=== PATIENT | female | born 1985 | race Caucasian/White ===

== ENCOUNTER 2016-09-01 11:49 | Emergency (ER) | payer MEDICAID ==
[~2016-09-01] VITALS: Ht 162.6 cm; Wt 65.0 kg
[~2016-09-01 11:49] MED LIST: CIPR500T4 PO; PERC5TAB12 PO; TAMS0.4C67 PO
[2016-09-01 11:51] VITALS: BP 128/61; PULSE 89; RESP 12; TEMP 98; O2SAT 100
--- NOTE | 2016-09-01 12:02 | PD ---
HPI Chief Complaint: Related Problem Time Seen by Provider: 12:02 Travel History International Travel<30 days: No Contact w/Intl Traveler<30days: No Traveled to known affect area: No History of Present Illness HPI [employer] interpretation services are used 30 year-old female with no significant medical history, presents to emergency department for evaluation of nausea, vomiting, fever, chills. Patient believes that she is 6 or 7 weeks . Her last menstrual cycle was in June. She states yesterday she developed fever and she has had lower abdominal pain as well. Vaginal discharge without bleeding. She has had no episodes of diarrhea. She has had decreased urine output. She has no other symptoms to report. PFS Past Medical History Medical History: Denies Significant Hx ?: Not : 3 Para: 3 Social History Alcohol Use: No Tobacco Use: No Substance Use: No Allergies-Medications (Allergen,Severity, Reaction): Coded Allergies: No Known Allergies (Unverified , 09/01/16) Reported Meds & Prescriptions Reported Meds & Active Scripts Active Zofran Odt (Ondansetron Odt) 4 Mg Tab 4 Mg SL Q6HR PRN Macrobid (Nitrofurantoin Monoh/Nitrofur Macro) 100 Mg Cap 100 Mg PO BID 10 Days Review of Systems Except as stated in HPI: all other systems reviewed are Neg Physical Exam Narrative GENERAL: Well-nourished female patient, lying in bed in no acute distress SKIN: Warm and dry. HEAD: Atraumatic. Normocephalic. EYES: Pupils equal and round. No scleral icterus. No injection or drainage. ENT: No nasal bleeding or discharge. Mucous membranes pink and moist. NECK: Trachea midline. No JVD. CARDIOVASCULAR: Regular rate and rhythm. No murmur appreciated. RESPIRATORY: No accessory muscle use. Clear to auscultation. Breath sounds equal bilaterally. GASTROINTESTINAL: Abdomen soft, nondistended. Suprapubic and right lower quadrant tenderness to palpation. No rebound tenderness.. Hepatic and splenic margins not palpable. MUSCULOSKELETAL: No obvious deformities. No clubbing. No cyanosis. No edema. NEUROLOGICAL: Awake and alert. No obvious cranial nerve deficits. Motor grossly within normal limits. Normal speech. PSYCHIATRIC: Appropriate mood and affect; insight and judgment normal. Data Data Last Documented VS Vital Signs Date Time Temp Pulse Resp B/P Pulse Ox O2 Delivery O2 Flow Rate FiO2 09/01/16 15:32 82 16 120/62 100 Room Air 09/01/16 11:51 98.0 Orders Basic Metabolic Panel (Bmp) (09/01/16 12:25) Beta Hcg (Quant/Titer) (09/01/16 12:25) Complete Blood Count With Diff (09/01/16 12:25) Lipase (09/01/16 12:25) Urinalysis - C+S If Indicated (09/01/16 12:25) Ed Urine Pregnancytest Poc (09/01/16 12:25) Influenzae A/B Antigen (09/01/16 12:25) Us Pelvis (Ques Pr/Ect)W Trans (09/01/16 ) Labs Laboratory Tests Test 09/01/16 12:56 White Blood Count 10.5 TH/MM3 Red Blood Count 4.35 MIL/MM3 Hemoglobin 13.3 GM/DL Hematocrit 39.8 % Mean Corpuscular Volume 91.4 FL Mean Corpuscular Hemoglobin 30.6 PG Mean Corpuscular Hemoglobin 33.5 % Concent Red Cell Distribution Width 13.0 % Platelet Count 259 TH/MM3 Mean Platelet Volume 8.5 FL Neutrophils (%) (Auto) 69.7 % Lymphocytes (%) (Auto) 15.3 % Monocytes (%) (Auto) 9.3 % Eosinophils (%) (Auto) 5.3 % Basophils (%) (Auto) 0.4 % Neutrophils # (Auto) 7.3 TH/MM3 Lymphocytes # (Auto) 1.6 TH/MM3 Monocytes # (Auto) 1.0 TH/MM3 Eosinophils # (Auto) 0.6 TH/MM3 Basophils # (Auto) 0.0 TH/MM3 CBC Comment DIFF FINAL Differential Comment Urine Color YELLOW Urine Turbidity HAZY Urine pH 8.0 Urine Specific [place] 1.017 Urine Protein NEG mg/dL Urine Glucose (UA) NEG mg/dL Urine Ketones NEG mg/dL Urine Occult Blood NEG Urine Nitrite NEG Urine Bilirubin NEG Urine Urobilinogen LESS THAN 2.0 MG/DL Urine Leukocyte Esterase SMALL Urine RBC 1 /hpf Urine WBC 3 /hpf Urine Squamous Epithelial 2 /hpf Cells Urine Transitional Epithelial <1 /hpf Cells Urine Bacteria OCC /hpf Urine Mucus FEW /lpf Microscopic Urinalysis Comment CULT NOT INDICATED Sodium Level 138 MEQ/L Potassium Level 3.8 MEQ/L Chloride Level 107 MEQ/L Carbon Dioxide Level 25.7 MEQ/L Anion Gap 5 MEQ/L Blood Urea Nitrogen 6 MG/DL Creatinine 0.71 MG/DL Estimat Glomerular Filtration 97 ML/MIN Rate Random Glucose 90 MG/DL Calcium Level 8.9 MG/DL Lipase 100 U/L Human Chorionic Gonadotropin, [address] MIU/ML Quant MDM Medical Decision Making Medical Screen Exam Complete: Yes Emergency Medical Condition: Yes Medical Record Reviewed: Yes Differential Diagnosis Influenza versus UTI versus STD versus versus ectopic versus appendicitis versus gastritis Narrative Course 30-year-old female presents to emergency department for evaluation. Patient appears without distress. She does have suprapubic and right lower quadrant tenderness to palpation. Vital signs overall stable. She appears without distress. Workup was initiated in triage. Once a medical bed becomes available , patient will be transferred and care assumed by the provider. Scripts Ondansetron Odt (Zofran Odt)4 Mg Tab4 Mg SL Q6HR PRN (Nausea/Vomiting) #12 TAB Ref 0 Prov:Jose Vyas MD 09/01/16 Nitrofurantoin Monohydrate Macrocrystals (Macrobid)100 Mg [id number] Mg PO BID 10 Days Ref 0 Prov:Jose Vyas MD 09/01/16 Condition: Stable Jing Olvera Sep 01, 2016 12:02
[2016-09-01 13:18] LABS: AUTOMATED NEUTROPHIL # 7.3 TH/MM3 (1.8-7.7); BASOPHIL % 0.4 % (0.0-2.0); EOSINOPHIL # 0.6 TH/MM3 (0-0.4); EOSINOPHIL % 5.3 % (0.0-4.0); HEMATOCRIT 39.8 % (35.0-46.0); HEMO FLAGS DIFF FINAL; LYMPH % 15.3 % (9.0-44.0); LYMPHOCYTE # 1.6 TH/MM3 (1.0-4.8); MEAN CELL VOLUME 91.4 FL (80.0-100.0); MEAN CORPUSCULAR HEMOGLOBIN 30.6 PG (27.0-34.0); MEAN CORPUSCULAR HGB CONC 33.5 % (32.0-36.0); MONO % 9.3 % (0.0-8.0); NEUT % 69.7 % (16.0-70.0); PLATELET COUNT 259 TH/MM3 (150-450); RED BLOOD COUNT 4.35 MIL/MM3 (4.00-5.30); WHITE BLOOD COUNT 10.5 TH/MM3 (4.0-11.0)
[2016-09-01 13:25] LABS: BACTERIA, URINE OCC /hpf; BLOOD, URINE NEG (NEG); GLUCOSE,URINE NEG (NEG); KETONE, URINE NEG (NEG); MUCUS URINE FEW /lpf (OCC); NITRITE,URINE NEG (NEG); SQUAMOUS EPITHELIAL CELL URINE 2 /hpf (0-5); TRANSITIONAL EPI CELLS, URINE <1 /hpf; URINE COLOR YELLOW (YELLW/STRAW)
[2016-09-01 13:27] LABS: COMMENT (UR) CULT NOT INDICATED; CULTURE IF INDICATED CULT NOT INDICATED
[2016-09-01 13:31] LABS: BICARBONATE 25.7 MEQ/L (21.0-32.0); POTASSIUM 3.8 MEQ/L (3.5-5.1)
--- NOTE | 2016-09-01 14:13 | PD ---
Physical Exam Narrative Patient was initially seen in triage. Please see previous provider documentation for H&P. [employer] service was used for H&P as patient 's primary Nigerian-speaking.. Briefly patient comes in complaining of lower abdominal cramping pain, subjective fevers, nausea, and vomiting in . Patient is uncertain how high her fever was, but feels that she had one. Patient believes she is approximately 6-7 weeks has not been evaluated by an OB or primary care doctor for this yet. Patient denies doing anything for this. Patient reports small amount of vaginal discharge yesterday that was nonbloody. Denies any diarrhea, chest pain, shortness of breath, back pain, or known sick contacts. GENERAL: Well-developed, well nourished, in no acute distress, and non-ill appearing. SKIN: Warm and dry. HEAD: Atraumatic. Normocephalic. EYES: Pupils equal and round. EOMI. No scleral icterus. No injection or drainage. ENT: No nasal bleeding or discharge. Mucous membranes pink and moist. NECK: Trachea midline. Supple. No nuclear rigidity. CARDIOVASCULAR: Regular rate and rhythm. No murmur appreciated. RESPIRATORY: No accessory muscle use. No respiratory distress. Clear to auscultation. Breath sounds equal bilaterally. GASTROINTESTINAL: Abdomen soft, non-tender, nondistended. Hepatic and splenic margins not palpable. Normal bowel sounds 4. No pulsatile mass. MUSCULOSKELETAL: No obvious deformities. No clubbing. No cyanosis. No edema. Full range of motion. NEUROLOGICAL: Awake and alert. No obvious cranial nerve deficits. Motor grossly within normal limits. Normal speech. PSYCHIATRIC: Appropriate mood and affect; insight and judgment normal. Data Data Last Documented VS Vital Signs Date Time Temp Pulse Resp B/P Pulse Ox O2 Delivery O2 Flow Rate FiO2 09/01/16 15:32 82 16 120/62 100 Room Air 09/01/16 11:51 98.0 Orders Basic Metabolic Panel (Bmp) (09/01/16 12:25) Beta Hcg (Quant/Titer) (09/01/16 12:25) Complete Blood Count With Diff (09/01/16 12:25) Lipase (09/01/16 12:25) Prothrombin Time / Inr (Pt) (09/01/16 12:25) Act Partial Throm Time (Ptt) (09/01/16 12:25) Urinalysis - C+S If Indicated (09/01/16 12:25) Ed Urine Pregnancytest Poc (09/01/16 12:25) Influenzae A/B Antigen (09/01/16 12:25) Us Pelvis (Ques Pr/Ect)W Trans (09/01/16 ) Labs Laboratory Tests Test 09/01/16 12:56 White Blood Count 10.5 TH/MM3 Red Blood Count 4.35 MIL/MM3 Hemoglobin 13.3 GM/DL Hematocrit 39.8 % Mean Corpuscular Volume 91.4 FL Mean Corpuscular Hemoglobin 30.6 PG Mean Corpuscular Hemoglobin 33.5 % Concent Red Cell Distribution Width 13.0 % Platelet Count 259 TH/MM3 Mean Platelet Volume 8.5 FL Neutrophils (%) (Auto) 69.7 % Lymphocytes (%) (Auto) 15.3 % Monocytes (%) (Auto) 9.3 % Eosinophils (%) (Auto) 5.3 % Basophils (%) (Auto) 0.4 % Neutrophils # (Auto) 7.3 TH/MM3 Lymphocytes # (Auto) 1.6 TH/MM3 Monocytes # (Auto) 1.0 TH/MM3 Eosinophils # (Auto) 0.6 TH/MM3 Basophils # (Auto) 0.0 TH/MM3 CBC Comment DIFF FINAL Differential Comment Urine Color YELLOW Urine Turbidity HAZY Urine pH 8.0 Urine Specific [place] 1.017 Urine Protein NEG mg/dL Urine Glucose (UA) NEG mg/dL Urine Ketones NEG mg/dL Urine Occult Blood NEG Urine Nitrite NEG Urine Bilirubin NEG Urine Urobilinogen LESS THAN 2.0 MG/DL Urine Leukocyte Esterase SMALL Urine RBC 1 /hpf Urine WBC 3 /hpf Urine Squamous Epithelial 2 /hpf Cells Urine Transitional Epithelial <1 /hpf Cells Urine Bacteria OCC /hpf Urine Mucus FEW /lpf Microscopic Urinalysis Comment CULT NOT INDICATED Sodium Level 138 MEQ/L Potassium Level 3.8 MEQ/L Chloride Level 107 MEQ/L Carbon Dioxide Level 25.7 MEQ/L Anion Gap 5 MEQ/L Blood Urea Nitrogen 6 MG/DL Creatinine 0.71 MG/DL Estimat Glomerular Filtration 97 ML/MIN Rate Random Glucose 90 MG/DL Calcium Level 8.9 MG/DL Lipase 100 U/L Human Chorionic Gonadotropin, [address] MIU/ML Quant MDM Supervised Visit with CHELSEY: No Narrative Course Patient presented with lower abdominal pain and the test was positive. Ultrasound was performed and there is evidence of a developing uterine . There is no evidence to suggest ectopic , nor cervicitis, PID or torsion at this time. Patient appears stable and no clinical evidence of anemia or blood loss/rupture. There was no evidence to support colitis, diverticulitis, obstruction, abdominal or femoral herniation, volvulus , early appendicitis, or hernial incarceration or strangulation at this time. Patient in no obvious distress upon re-evaluation. All pertinent laboratory/ Radiology result(s) discussed with patient. Patient was asked if they wanted to speak to my attending, which the patient did not wish to do at this time. Discussed patient with Dr. Vyas, who is in agreement with plan of care and disposition. Any questions/concerns in reference to patient diagnosis/ condition discussed and clarified prior to patient's discharge. Reinforced sheer importance of close follow up with patient's primary physician or primary care clinic. Instructed patient to return to ED immediately, if symptoms return/ worsen. Pt showed understanding of above instructions. Further instructions and recommendations were detailed in discharge paperwork. Pt ambulated without difficulty out of ED at discharge. Diagnosis Primary Impression: Abdominal pain during Qualified Code: O26.891 - Abdominal pain during , first trimester Additional Impressions: Subchorionic hemorrhage in first trimester Urinary tract infection Qualified Code: N39.0 - Urinary tract infection without hematuria, site unspecified Ovarian cyst during in first trimester Referrals: [facility] Patient Instructions: Abdominal Pain in (ED), General Instructions, Ovarian Cyst (DC), Subchorionic Hemorrhage (ED), Urinary Tract Infection in (ED) Additional Instruction: Follow-up with your primary care physician and/or [facility] this week for evaluation. Do not have sexual intercourse until reevaluated by your OB secondary to subchorionic hemorrhage. Take all medication as prescribed. Use [id number] Tylenol as needed for pain. Follow instructions on the packaging. Return to the emergency department if symptoms get worse. Med/Other Pt SpecificInfo: Prescription(s) given Scripts Ondansetron Odt (Zofran Odt)4 Mg Tab4 Mg SL Q6HR PRN (Nausea/Vomiting) #12 TAB Ref 0 Prov:Jose Vyas MD 09/01/16 Nitrofurantoin Monohydrate Macrocrystals (Macrobid)100 Mg [id number] Mg PO BID 10 Days Ref 0 Prov:Jose Vyas MD 09/01/16 Disposition: 01 DISCHARGE HOME Condition: Stable Eduar Rosales Sep 01, 2016 14:13
--- NOTE | 2016-09-01 15:18 | RADRPT ---
EXAM DATE/TIME: 09/01/2016 14:34 [place] COMPARISON: No previous studies available for comparison. INDICATIONS : Pelvic pain. LAB(S): Beta-hC,555 MEDICAL HISTORY : . SURGICAL HISTORY : None. ENCOUNTER: Initial ACUITY: 1 day PAIN SCORE: 2/10 LOCATION: Bilateral pelvis MEASUREMENTS: UTERUS: 9.8 x 6.5 x 8.4 cm ENDOMETRIAL STRIPE: 19 mm RIGHT OVARY: 3.4 x 2.7 x 2.2 cm LEFT OVARY: 1.7 x 0.8 x 3.2 cm FINDINGS: UTERUS: There is a gestational sac noted in the endometrial cavity. There is a pole that measures 9 wee ks and 3 days of gestational age. There is a heart beat at 183 beats per minute. The yolk sac is demo nstrated. Focal small hypoechoic area adjacent to the gestational sac measuring 1.4 cm suggestive of a subchorionic hemorrhage. The uterus is retroverted in position. RIGHT OVARY: There is a complex cyst measuring 2.2 x 2.1 cm. LEFT OVARY: Ovary contains no mass or significant cystic lesion. MISCELLANEOUS: No free fluid. CONCLUSION: 1. Viable IUP of 9 weeks and 3 days gestational age 2. Small subchorionic hemorrhage adjacent to the gestational sac. 3. Complex right ovarian cyst measuring 2.2 cm. Preston Willis MD on September 01, 2016 at 15:13 Board Certified Radiologist. This report was verified electronically.
[2016-09-01] MEDS ORDERED: MACR100C2 PO (15:26)
[2016-09-01] MEDS ORDERED: ZOFR4TAB3 SL (15:26)
[2016-09-01 15:32] VITALS: BP 120/62; PULSE 82; RESP 16; O2SAT 100
[2016-10-20] MEDS ORDERED: PREN1CAP7 PO (10:19)
[2016-12-21] MEDS ORDERED: MACR100C2 PO (10:50)
== END 2016-09-01 15:41 | disposition home or self-care (01) ==
LOC: NEPC 11:49
DX: O26.891 Other specified pregnancy related conditions, first trimester (principal); O46.91 Antepartum hemorrhage, unspecified, first trimester; R10.30 Lower abdominal pain, unspecified; N39.0 Urinary tract infection, site not specified; N83.201 Unspecified ovarian cyst, right side; Z3A.01 Less than 8 weeks gestation of pregnancy
CPT/HCPCS: 76700; 76817; 80048; 81001; 83690; 84702; 84703; 85025; 87804